=== PATIENT | female | born 1935 | race Caucasian/White ===

== ENCOUNTER → 2016-08-04 | Outpatient (CLI) | payer OTHER ==
[~2016-08-04] VITALS: Ht 157.5 cm; Wt 77.1 kg
[~2016-08-04] MED LIST: ACCUPRIL20 MG PO; AMOXICILLIN875 MG PO; ASPIRIN81 M2 PO; DILTIAZEM 24HR120 MG PO; GLIMEPIRIDE1 MG PO; HYDROCHLOROTH12.5 M3 PO; HYDROCODON-ACE1 EAC7 PO; KEPPRA250 MG PO; KEPPRA500 MG PO; LO-DOSE ASPIRIN81 M2 PO; METFORMIN HCL1000 MG PO; METFORMIN HCL500 MG PO; PIOGLITAZONE PO; PROTONIX40 MG PO; SIMVASTATIN10 MG PO; SINGULAIR10 MG PO; ULTRAM50 MG PO
[2016-08-04 11:01] LABS: POINT-OF-CARE METER ID UU13113694
[2016-08-04 13:18] LABS: POINT-OF-CARE METER ID UU13113819
== END | disposition home or self-care (01) ==
LOC: AMB 09:39
PROVIDERS: Internal Medicine Gastroenterology
PROC: 0DJ08ZZ Inspection of Upper Intestinal Tract, Via Natural or Artificial Opening Endoscopic (ICD-10-PCS; principal; 2016-08-04)
DX: K29.70 Gastritis, unspecified, without bleeding (principal); R10.13 Epigastric pain; A04.8 Other specified bacterial intestinal infections; K21.9 Gastro-esophageal reflux disease without esophagitis; E78.5 Hyperlipidemia, unspecified; M19.90 Unspecified osteoarthritis, unspecified site; I10 Essential (primary) hypertension; I25.10 Atherosclerotic heart disease of native coronary artery without angina pectoris; E11.9 Type 2 diabetes mellitus without complications; Z80.0 Family history of malignant neoplasm of digestive organs; Z82.49 Family history of ischemic heart disease and other diseases of the circulatory system; Z83.3 Family history of diabetes mellitus; Z87.891 Personal history of nicotine dependence; Z79.84 Long term (current) use of oral hypoglycemic drugs
CPT/HCPCS: 82948; 93005; J3010